=== PATIENT | male | born 1950 | race Caucasian/White ===

== ENCOUNTER 2016-08-06 22:56 | Inpatient (IN) | payer OTHER ==
[~2016-08-06] VITALS: Ht 170.2 cm; Wt 78.9 kg
[~2016-08-06 22:56] MED LIST: ADVAIR 250/501 DISK IH; ADVAIR HFA120 INHALA IH; ASPIR-LOW81 MG PO; ASPIRIN81 M2 PO; ATENOLOL25 MG PO; ATORVASTATIN CA40 MG PO; AVAPRO300 MG; AVAPRO300 MG PO; BENTYL10 MG PO; BENTYL20 MG PO; CARDIZEM CD120 MG PO; CIPRO500 MG PO; CITALOPRAM HBR10 MG PO; COLACE100 MG PO; Cholesterol Med PO; DUONEB 2.5-0.5 M3 ML AEROSOL; EFFIENT10 MG PO; ENDOCET 5-3251 EACH; ENDOCET 5-3251 EACH PO; FLAGYL500 MG PO; FLEXERIL10 MG PO; FLEXERIL5 MG PO; FLOMAX0.4 MG PO; FLORASTOR250 MG PO; GABAPENTIN300 MG PO; HYDROCODON-ACE1 EAC7 PO; IMDUR30 MG PO; IRBESARTAN300 MG PO; KEPPRA500 MG PO; LEVAQUIN750 MG PO; LIPITOR20 MG PO; LOMOTIL TABLET1 EACH PO; MEDROL DOSEPAK4 MG PO; MOTRIN800 MG PO; NABUMETONE500 MG PO; NAPROSYN500 MG PO; NAPROXEN500 MG PO; NEURONTIN300 MG PO; NEURONTIN400 MG PO; NICODERM CQ1 EACH TD; NITROLINGUAL S4.9 GM MM; NITROSTAT0.4 MG SL; NORCO 5/3251 TABLET PO; NORCO 7.5/321 TABLET PO; OXYCODONE HCL5 MG; OXYCODONE HCL5 MG PO; OXYCODONE-ACET1 EACH PO; PANTOPRAZOLE SO40 MG PO; PEN-VEE K,VEET500 MG PO; PERCOCET 10/1 TABLET PO; PERCOCET 5/31 TABLET PO; PLAVIX75 MG PO; PREDNISONE10 M1 PO; PREDNISONE10 MG PO; PREDNISONE20 MG PO; PREDNISONE50 MG PO; PROAIR HFA8.5 GM IH; PROMETHAZINE HC25 M1 PO; SPIRIVA RESPIMAT4 GM IH; SPIRIVA1 INHALATI IH; SYMBICORT60 INHALAT IH; TAMSULOSIN HCL0.4 MG; TORADOL10 MG PO; TRAMADOL HCL50 MG; TRAMADOL HCL50 MG PO; TYLENOL REGULA325 MG PO; TYLENOL WITH C1 EACH PO; ULTRAM50 MG PO; VALIUM5 MG PO; VICODIN 5-3001 EACH PO; VICODIN,LORT1 TABLET PO; ZANTAC150 MG PO; ZOFRAN ODT4 MG PO; ZOFRAN4 MG PO; ZYBAN 150 MG T150 MG PO; [UNRECOGNIZED DRUG - OTHER] IH; [UNRECOGNIZED DRUG - OTHER] PO
[2016-08-06 23:35] LABS: HEMATOCRIT 45.8 % (38.0-50.0); MCH 34.2 PG (29.0-34.0); MCHC 32.8 G/DL (30.0-36.0); MCV 104.3 FL (86-99); MEAN PLAT.VOLUME 9.3 uM^3 (9.0-12.4); PLATELET COUNT 235 K/uL (156-360); RBC DIS.WIDTH-CV 11.8 % (11.8-14.6); RBC DIS.WIDTH-SD 44.8 % (39-53); RED BLOOD COUNT 4.39 M/uL (4.00-5.50); WHITE BLOOD COUNT 6.1 K/uL (4.1-10.2)
[2016-08-06 23:45] LABS: CHLORIDE 96 mEq/L (99-109); SODIUM 139 mEq/L (136-147)
[2016-08-06 23:47] LABS: GLUCOSE 161 mg/dL (70-99)
[2016-08-06 23:48] LABS: ANION GAP 10 MEQ/L (2-14)
[2016-08-06 23:50] LABS: GFR ESTIMATE (CALCULATED) > 59 mL/min/
[2016-08-06 23:51] LABS: UREA NITROGEN (BUN) 11 mg/dL (9-23)
[2016-08-06 23:55] LABS: TROP-I INTERPRETATION NEGATIVE; TROPONIN-I < 0.01 ng/mL (0.0-0.30)
[2016-08-07] VITALS (15 sets, daily range): BP systolic 108–150; BP diastolic 67–85
[2016-08-07 01:17] LABS: TOTAL BILIRUBIN 0.3 mg/dL (0.0-1.0)
[2016-08-07 01:18] LABS: ALKALINE PHOSPHATASE 72 IU/L (3-129)
[2016-08-07 01:20] LABS: DIRECT BILIRUBIN 0.1 mg/dL (0.0-0.3)
[2016-08-07 01:21] LABS: LIPASE 29 U/L (1.0-51.0)
[2016-08-07 07:23] LABS: TROP-I INTERPRETATION NEGATIVE; TROPONIN-I < 0.01 ng/mL (0.0-0.30)
[2016-08-07 14:30] LABS: TROP-I INTERPRETATION NEGATIVE; TROPONIN-I < 0.01 ng/mL (0.0-0.30)
[2016-08-07 15:08] LABS: METH RESISTANT S AUREUS PCR POSITIVE (NEGATIVE)
[2016-08-07 15:22] LABS: PROBE CHECK PASS
[2016-08-08] VITALS (9 sets, daily range): BP systolic 98–134; BP diastolic 56–87
[2016-08-08 06:04] LABS: EOSINOPHIL COUNT 0.1 K/uL (0-0.3); HEMATOCRIT 46.6 % (38.0-50.0); IMMATURE GRANULOCYTE (%) 0.2 % (0.0-0.7); LYMPHOCYTE COUNT 2.1 K/uL (1.0-2.8); MCH 34.4 PG (29.0-34.0); MCHC 32.4 G/DL (30.0-36.0); MCV 106.2 FL (86-99); MONOCYTE (%) 7.4 % (3-12); MONOCYTE COUNT 0.6 K/uL (0-0.8); NEUTROPHIL (%) 66.6 % (45-76); NEUTROPHIL COUNT 5.6 K/uL (1.8-6.4); PLATELET COUNT 257 K/uL (156-360); RBC DIS.WIDTH-CV 12.7 % (11.8-14.6); RBC DIS.WIDTH-SD 49.7 % (39-53); RED BLOOD COUNT 4.39 M/uL (4.00-5.50)
[2016-08-08 06:06] LABS: WHITE BLOOD COUNT 8.4 K/uL (4.1-10.2)
[2016-08-08 06:12] LABS: ANION GAP 7 MEQ/L (2-14); CHLORIDE 102 MEQ/L (99-109); GFR ESTIMATE (CALCULATED) > 59 mL/min/; HDL CHOLESTEROL 48 MG/DL (Desirable>=40); LDL CHOLESTEROL 110 mg/dL (Desirable<100); MAGNESIUM 2.1 mg/dl (1.3-2.7); NON-HDL CHOLESTEROL 135 mg/dL (Desirable<160); POTASSIUM 4.1 MEQ/L (3.7-5.4); SAMPLE HEMOLYSIS CHECK 0; SAMPLE ICTERIC CHECK 0; SAMPLE LIPEMIA CHECK 0; SODIUM 141 MEQ/L (136-147); TOTAL CHOLESTEROL 183 mg/dL (Desirable<200); TRIGLYCERIDES 127 MG/DL (Normal: <150); UREA NITROGEN (BUN) 14 mg/dL (9-23)
[2016-08-08 06:15] LABS: GLUCOSE 103 mg/dL (70-99)
[2016-08-08 07:49] LABS: Estimated Average Glucose 111 mg/dL (70-123); HEMOGLOBIN A1c (GLYCOHEMOGLOB) 5.5 % HGB (Below 5.7)
[2016-08-08] MEDS ORDERED: CLOPIDOGREL75 MG PO (14:48)
[2016-08-08] MEDS ORDERED: NITROSTAT0.4 MG SL (14:48)
== END 2016-08-08 16:08 | disposition home or self-care (01) | DRG 247 ==
LOC: EME → EDBD 22:56 → EDOF 08-07 00:38 → 5WEST 08-07 01:51 → 4WEST 08-07 12:41 → 5WEST 08-07 12:41 → 4WEST 08-07 13:45
PROVIDERS: Hospitalist; Internal Medicine; Internal Medicine Cardiovascular Disease
DX: I25.110 Atherosclerotic heart disease of native coronary artery with unstable angina pectoris (principal); I25.84 Coronary atherosclerosis due to calcified coronary lesion; I44.1 Atrioventricular block, second degree; J44.0 Chronic obstructive pulmonary disease with (acute) lower respiratory infection; J20.9 Acute bronchitis, unspecified; J44.1 Chronic obstructive pulmonary disease with (acute) exacerbation; K86.1 Other chronic pancreatitis; Z95.5 Presence of coronary angioplasty implant and graft; G47.33 Obstructive sleep apnea (adult) (pediatric); I10 Essential (primary) hypertension; E11.9 Type 2 diabetes mellitus without complications; E78.5 Hyperlipidemia, unspecified; G89.4 Chronic pain syndrome; M54.9 Dorsalgia, unspecified; R10.9 Unspecified abdominal pain; Z85.820 Personal history of malignant melanoma of skin; Z87.891 Personal history of nicotine dependence
CPT/HCPCS: 71020; 80048; 80061; 80076; 83036; 83690; 83735; 84484; 85025; 85027; 85347; 87081; 87641; 93005; 94640; 94640 76; 94760; 94799; 99202; 99281; 99285; C1769; C1874; C1887; J0153; J0461; J1100; J1644; J2250; J2270; J3010; J7030; J7050; J7644

== ENCOUNTER 2016-10-15 03:14 | Emergency (ER) | payer OTHER ==
[~2016-10-15] VITALS: Ht 170.2 cm; Wt 81.1 kg
[~2016-10-15 03:14] MED LIST changes: +CLOPIDOGREL75 MG PO
[2016-10-15 03:52] LABS: BASOPHIL COUNT 0.1 K/uL (0-0.1); EOSINOPHIL (%) 2.5 % (0-5); EOSINOPHIL COUNT 0.3 K/uL (0-0.3); HEMATOCRIT 41.1 % (38.0-50.0); IMMATURE GRANULOCYTE (%) 0.8 % (0.0-0.7); IMMATURE GRANULOCYTE COUNT 0.1 K/uL; INSTRUMENT ABS NEUTROPHIL CT 6.2 K/uL; LYMPHOCYTE COUNT 2.9 K/uL (1.0-2.8); MCH 33.1 PG (29.0-34.0); MCHC 33.3 G/DL (30.0-36.0); MCV 99.3 FL (86-99); MEAN PLAT.VOLUME 9.1 uM^3 (9.0-12.4); MONOCYTE (%) 7.9 % (3-12); MONOCYTE COUNT 0.8 K/uL (0-0.8); NEUTROPHIL (%) 59.8 % (45-76); NEUTROPHIL COUNT 6.2 K/uL (1.8-6.4); PLATELET COUNT 225 K/uL (156-360); RBC DIS.WIDTH-CV 12.6 % (11.8-14.6); RBC DIS.WIDTH-SD 46.5 % (39-53); RED BLOOD COUNT 4.14 M/uL (4.00-5.50); WHITE BLOOD COUNT 10.3 K/uL (4.1-10.2)
[2016-10-15 04:06] LABS: CHLORIDE 101 mEq/L (99-109); POTASSIUM 3.7 mEq/L (3.7-5.4); SODIUM 140 mEq/L (136-147)
[2016-10-15 04:09] LABS: GLUCOSE 113 mg/dL (70-99)
[2016-10-15 04:10] LABS: ANION GAP 12 MEQ/L (2-14); TOTAL BILIRUBIN 1.1 mg/dL (0.0-1.0)
[2016-10-15 04:12] LABS: ALKALINE PHOSPHATASE 58 IU/L (3-129); GFR ESTIMATE (CALCULATED) > 59 mL/min/
[2016-10-15 04:13] LABS: UREA NITROGEN (BUN) 15 mg/dL (9-23)
[2016-10-15 05:55] LABS: ADD MIUA? NO; BILIRUBIN NEGATIVE; BLOOD NEGATIVE; COLOR YELLOW ((YELLOW)); GLUCOSE (STRIP) NEGATIVE; KETONES NEGATIVE; LEUKOCYTES NEGATIVE; NITRITE NEGATIVE; PROTEIN (STRIP) NEGATIVE; SPECIFIC GRAVITY 1.017 (1.000-1.030); UCUL ADDED? NO; UROBILINOGEN 0.2 MG/DL (0.2-1.0)
[2016-10-15 06:29] VITALS: BP 124/81
== END 2016-10-15 06:36 | disposition home or self-care (01) ==
LOC: EME 03:14
PROVIDERS: Emergency Medicine
DX: R10.32 Left lower quadrant pain (principal); R19.7 Diarrhea, unspecified; M54.5 Low back pain; R11.2 Nausea with vomiting, unspecified; Z90.49 Acquired absence of other specified parts of digestive tract; I10 Essential (primary) hypertension; E78.5 Hyperlipidemia, unspecified; J44.9 Chronic obstructive pulmonary disease, unspecified; J45.909 Unspecified asthma, uncomplicated; G89.29 Other chronic pain; Z79.891 Long term (current) use of opiate analgesic; Z79.82 Long term (current) use of aspirin; Z87.442 Personal history of urinary calculi; Z95.5 Presence of coronary angioplasty implant and graft; Z87.891 Personal history of nicotine dependence
CPT/HCPCS: 74177; 80053; 81003; 85025; 85027; 99281; 99285; J2270; J2405; J7030

== ENCOUNTER 2016-12-17 02:31 | Emergency (ER) | payer OTHER ==
[~2016-12-17] VITALS: Ht 170.2 cm; Wt 80.4 kg
[2016-12-17 03:46] LABS: HEMATOCRIT 36.6 % (38.0-50.0); MCH 34.1 PG (29.0-34.0); MCHC 33.1 G/DL (30.0-36.0); MCV 103.1 FL (86-99); MEAN PLAT.VOLUME 9.2 uM^3 (9.0-12.4); PLATELET COUNT 208 K/uL (156-360); RBC DIS.WIDTH-CV 11.9 % (11.8-14.6); RBC DIS.WIDTH-SD 45.5 % (39-53); RED BLOOD COUNT 3.55 M/uL (4.00-5.50); WHITE BLOOD COUNT 13.4 K/uL (4.1-10.2)
[2016-12-17 04:01] LABS: CHLORIDE 99 mEq/L (99-109); POTASSIUM 3.7 mEq/L (3.7-5.4); SODIUM 138 mEq/L (136-147)
[2016-12-17 04:03] LABS: GLUCOSE 114 mg/dL (70-99)
[2016-12-17 04:04] LABS: ANION GAP 9 MEQ/L (2-14)
[2016-12-17 04:05] LABS: TOTAL BILIRUBIN 0.5 mg/dL (0.0-1.0)
[2016-12-17 04:07] LABS: ALKALINE PHOSPHATASE 47 IU/L (3-129); GFR ESTIMATE (CALCULATED) > 59 mL/min/
[2016-12-17 04:08] LABS: UREA NITROGEN (BUN) 17 mg/dL (9-23)
[2016-12-17 04:10] LABS: LIPASE 17 U/L (1.0-51.0)
[2016-12-17] MEDS ORDERED: PEPCID20 MG PO (05:28)
[2016-12-17] MEDS ORDERED: BENTYL20 MG PO (05:28)
[2016-12-17 05:43] VITALS: BP 117/80
[2016-12-17 06:49] LABS: ADD MIUA? YES; BILIRUBIN NEGATIVE; BLOOD SMALL; COLOR YELLOW ((YELLOW)); GLUCOSE (STRIP) NEGATIVE; KETONES NEGATIVE; LEUKOCYTES NEGATIVE; NITRITE NEGATIVE; PROTEIN (STRIP) NEGATIVE; SPECIFIC GRAVITY 1.043 (1.000-1.030); UROBILINOGEN 0.2 MG/DL (0.2-1.0)
[2016-12-17 07:27] LABS: BACTERIA NONE SEEN /HPF; EPITHELIAL CELLS NONE SEEN /HPF; MUCUS NONE SEEN /LPF; RED BLOOD CELLS RARE /HPF (0-5); UCUL ADDED? NO; WHITE BLOOD CELLS NONE SEEN /HPF (0-5)
== END 2016-12-17 05:44 | disposition home or self-care (01) ==
LOC: EME 02:31
DX: R10.13 Epigastric pain (principal); R11.0 Nausea; E78.5 Hyperlipidemia, unspecified; I10 Essential (primary) hypertension; Z87.442 Personal history of urinary calculi; Z87.19 Personal history of other diseases of the digestive system; Z86.73 Personal history of transient ischemic attack (TIA), and cerebral infarction without residual deficits; Z95.5 Presence of coronary angioplasty implant and graft; Z88.6 Allergy status to analgesic agent; Z87.891 Personal history of nicotine dependence
CPT/HCPCS: 74177; 80053; 81003; 83605; 83690; 85027; 99281; 99285; J2270; J2405; J7030; S0028

== ENCOUNTER 2017-02-07 06:18 | Emergency (ER) | payer OTHER ==
[~2017-02-07] VITALS: Ht 170.2 cm; Wt 78.6 kg
[~2017-02-07 06:18] MED LIST changes: +PEPCID20 MG PO
[2017-02-07] MEDS ORDERED: PERCOCET 5/31 TABLET PO (09:13)
[2017-02-07] MEDS ORDERED: NAPROXEN500 MG PO (09:18)
[2017-02-07 09:50] VITALS: BP 132/76
== END 2017-02-07 09:52 | disposition home or self-care (01) ==
LOC: EME 06:18
DX: M25.512 Pain in left shoulder (principal); X50.0XXA Overexertion from strenuous movement or load, initial encounter; Z98.890 Other specified postprocedural states; J44.9 Chronic obstructive pulmonary disease, unspecified; I10 Essential (primary) hypertension; E78.00 Pure hypercholesterolemia, unspecified; Z88.6 Allergy status to analgesic agent; F17.200 Nicotine dependence, unspecified, uncomplicated; Z71.6 Tobacco abuse counseling
CPT/HCPCS: 73030; 99281; 99283

== ENCOUNTER 2017-03-22 01:34 | Emergency (ER) | payer OTHER ==
[~2017-03-22] VITALS: Ht 170.2 cm; Wt 78.7 kg
[2017-03-22 02:28] LABS: HEMATOCRIT 38.9 % (38.0-50.0); MCH 33.2 PG (29.0-34.0); MCHC 32.9 G/DL (30.0-36.0); MCV 100.8 FL (86-99); MEAN PLAT.VOLUME 9.5 uM^3 (9.0-12.4); PLATELET COUNT 198 K/uL (156-360); RBC DIS.WIDTH-CV 12.1 % (11.8-14.6); RED BLOOD COUNT 3.86 M/uL (4.00-5.50); WHITE BLOOD COUNT 5.5 K/uL (4.1-10.2)
[2017-03-22 02:35] LABS: CHLORIDE 104 mEq/L (99-109); INTER. NORMALIZED RATIO 0.9; PROTHROMBIN TIME 10.1 SEC (10.2-12.9)
[2017-03-22 02:36] LABS: POTASSIUM 3.8 mEq/L (3.7-5.4); SODIUM 140 mEq/L (136-147)
[2017-03-22 02:37] LABS: GLUCOSE 101 mg/dL (70-99)
[2017-03-22 02:38] LABS: PTT 31.8 SEC (25-37)
[2017-03-22 02:39] LABS: ANION GAP 8 MEQ/L (2-14)
[2017-03-22 02:41] LABS: GFR ESTIMATE (CALCULATED) > 59 mL/min/
[2017-03-22 02:42] LABS: UREA NITROGEN (BUN) 15 mg/dL (9-23)
[2017-03-22 03:24] VITALS: BP 165/81
== END 2017-03-22 03:25 | disposition home or self-care (01) ==
LOC: EME 01:34
PROVIDERS: Emergency Medicine
DX: R25.2 Cramp and spasm (principal); M79.604 Pain in right leg; I10 Essential (primary) hypertension; E78.5 Hyperlipidemia, unspecified; J44.9 Chronic obstructive pulmonary disease, unspecified; Z85.820 Personal history of malignant melanoma of skin; Z95.5 Presence of coronary angioplasty implant and graft; Z79.02 Long term (current) use of antithrombotics/antiplatelets; Z79.82 Long term (current) use of aspirin; Z99.81 Dependence on supplemental oxygen; Z90.49 Acquired absence of other specified parts of digestive tract; Z72.0 Tobacco use
CPT/HCPCS: 80048; 85027; 85610; 85730; 93971; 99281; 99284

== ENCOUNTER 2017-10-24 20:42 | Emergency (ER) | payer OTHER ==
[~2017-10-24] VITALS: Ht 170.2 cm; Wt 73.3 kg
[2017-10-24 22:14] LABS: HEMATOCRIT 45.1 % (38.0-50.0); HEMOGLOBIN 14.7 G/DL (12.5-16.6); MCH 33.8 PG (29.0-34.0); MCHC 32.6 G/DL (30.0-36.0); MCV 103.7 FL (86-99); PLATELET COUNT 203 K/uL (156-360); RBC DIS.WIDTH-CV 13.4 % (11.8-14.6); RBC DIS.WIDTH-SD 52.1 % (39-53); RED BLOOD COUNT 4.35 M/uL (4.00-5.50); WHITE BLOOD COUNT 7.2 K/uL (4.1-10.2)
[2017-10-24 22:26] LABS: CHLORIDE 95 mEq/L (99-109); POTASSIUM 3.9 mEq/L (3.7-5.4); SODIUM 147 mEq/L (136-147)
[2017-10-24 22:28] LABS: GLUCOSE 106 mg/dL (70-99)
[2017-10-24 22:30] LABS: AMPHETAMINE NEGATIVE (500 ng/mL); BENZODIAZEPINES PRESUMPTIVE POSITIVE (150 ng/mL); COCAINE NEGATIVE (150 ng/mL); METHAMPHETAMINE NEGATIVE (500 ng/mL); OPIATES (MORPHINE) NEGATIVE (100 ng/mL); PHENCYCLIDINE NEGATIVE (25 ng/mL); THC CANNABINOIDS NEGATIVE (50 ng/mL); TRICYCLIC ANTIDEPRESSANTS NEGATIVE (300 ng/mL)
[2017-10-24 22:31] LABS: SERUM ETHYL ALCOHOL 213 mg/dL
[2017-10-24 22:31] LABS: BARBITURATES NEGATIVE (200 ng/mL); BUPRENORPHINE NEGATIVE (10 ng/mL); METHADONE NEGATIVE (200 ng/mL); OXYCODONE PRESUMPTIVE POSITIVE (100 ng/mL); PROPOXYPHENE NEGATIVE (300 ng/mL)
[2017-10-24 22:32] LABS: CREATININE 0.7 mg/dL (0.6-1.3); GFR ESTIMATE (CALCULATED) > 59 mL/min/ (58.99-99999)
[2017-10-24 22:33] LABS: UREA NITROGEN (BUN) 11 mg/dL (9-23)
[2017-10-24 22:36] LABS: TROP-I INTERPRETATION NEGATIVE; TROPONIN-I 0.01 ng/mL (0.0-0.30)
[2017-10-24 23:00] LABS: BENZODIAZEPINES, URINE SCREEN POSITIVE (200 ng/mL)
[2017-10-25 01:08] VITALS: BP 127/75
== END 2017-10-25 01:11 | disposition home or self-care (01) ==
LOC: EME → EDBD 20:42 → EME 10-25 01:11
PROVIDERS: Emergency Medicine
DX: S00.31XA Abrasion of nose, initial encounter (principal); F10.129 Alcohol abuse with intoxication, unspecified; Y90.7 Blood alcohol level of 200-239 mg/100 ml; S50.811A Abrasion of right forearm, initial encounter; M54.2 Cervicalgia; W18.30XA Fall on same level, unspecified, initial encounter; J44.9 Chronic obstructive pulmonary disease, unspecified; E78.5 Hyperlipidemia, unspecified; I10 Essential (primary) hypertension; K21.9 Gastro-esophageal reflux disease without esophagitis; R56.9 Unspecified convulsions; F32.9 Major depressive disorder, single episode, unspecified; F31.9 Bipolar disorder, unspecified; F41.9 Anxiety disorder, unspecified; I25.10 Atherosclerotic heart disease of native coronary artery without angina pectoris; Z95.5 Presence of coronary angioplasty implant and graft; Z87.442 Personal history of urinary calculi; Z86.73 Personal history of transient ischemic attack (TIA), and cerebral infarction without residual deficits; Z85.820 Personal history of malignant melanoma of skin; Z72.0 Tobacco use; Z99.81 Dependence on supplemental oxygen; Z79.82 Long term (current) use of aspirin; Z88.6 Allergy status to analgesic agent; Z88.5 Allergy status to narcotic agent
CPT/HCPCS: 70450; 72125; 80048; 84484; 84999; 85027; 93005; 99281; 99285; G0480